=== PATIENT | female | born 2005 | race Caucasian/White ===

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

== ENCOUNTER 2024-08-13 08:48 | Emergency (ER) | payer MEDICAID, SELFPAY ==
[2024-08-13] VITALS (8 sets, daily range): BP systolic 125–167; BP diastolic 59–104; PULSE 68–107; RESP 16–18; TEMP 36.6; O2SAT 98–100; BMI 39.4
[2024-08-13 08:59] LABS: Microscopic, Urine URINE MICROSCOPIC (MICROSCOPIC)
[2024-08-13 09:04] LABS: Appearance,Urine CLOUDY (Clear); Bilirubin,Urine Negative (Negative); Blood, Urine Negative (Negative); Color,Urine YELLOW (Yellow); Glucose,Urine (UA) Negative (Negative); Ketones,Urine Negative (Negative); Leukocyte Esterase,Urine 2+ (Negative); Nitrate,Urine Negative (Negative); Protein,Urine Negative (Negative); Urobilinogen,Urine 0.2 EU/dl (0.2)
--- NOTE | 2024-08-13 09:12 | HMH.EDGENADL ---
Discharge Plan Disposition Patient Disposition: Home, Self-Care Condition: Good Prescriptions Prescriptions: New cefdinir 300 mg capsule 300 mg PO BID 7 Days Qty: 14 0RF ketorolac 10 mg tablet 10 mg PO Q8H PRN (Reason: pain) 3 Days Qty: 9 0RF No Action medroxyprogesterone 150 mg/mL suspension See Rx Instructions .ROUTE .COMPLEX Patient Comments: INJECT ONE (1) ML EVERY THREE (3) MONTHS BY INTRAMUSCULAR ROUTE. Rx Instructions: . methylprednisolone acetate [Depo-Medrol] 40 mg/mL Suspension See Rx Instructions .ROUTE .COMPLEX Rx Instructions: (unsure) mg intramuscularly q12 weeks for BC. Patient unsure of dosage number Referrals Follow up/Referrals: Provider,Referral, MD [Primary Care Provider, Medical] - See instructions Activity Restrictions/Add. Instructions Additional Instructions/Restrictions: You were evaluated in the emergency department today. At this time, CT scans are reassuring and we do not see any postoperative complications such as retained stone or obvious biliary ductal dilatation. Your labs are reassuring as well. You may have a urinary tract infection, so we are prescribing you an antibiotic to treat this. I am also prescribing you Toradol to take as needed for pain. Please follow-up closely with your primary care provider for reassessment. Keep your follow-up with surgery tomorrow as well for further assessment. Return to the emergency department for new or worsening symptoms. Clinical Impressions Clinical Impression: Acute right flank pain, UTI (urinary tract infection) Stand Alone Forms Stand Alone Forms: Work/School Release Instructions Patient Instructions: DI for Urinary Tract Infection (UTI), DI for Thoracic Back Pain Print Language Print Language: Hungarian Discharge ED Provider: Griselda Purdy General Adult HPI General Chief complaint: Back Pain/Injury Stated complaint: back pain no accident Time Seen by Provider: 08/13/24 09:07 Mode of Arrival: Ambulatory Source of Information: Patient Description of Symptoms (Recalled from ER Triage Doc. by RN): Patient complaining of pain in right upper back that she states is similar to pain she was having before she had her gallbladder removed a year ago- states she has an appt tomorrow with surgeon but she could not take the pain anymore, pain has gotten progressively worse since last weekend but she has had continued pain since surgery. Has had nausea, but denies vomiting or diarrhea, has not taken anything for the pain. History of Present Illness HPI narrative: This patient is a 18-year-old female with a history of cholecystectomy 05/25/2023 for acute calculus cholecystitis presenting to the emergency department for evaluation of concern for right upper back/right upper abdominal pain and nausea. The spells have been intermittent ever since before she had her gallbladder out, and she states is the same as the gallbladder pain that prompted her ED evaluation necessitating cholecystectomy in the past. She states that it hits her randomly and is so severe that she becomes very nauseated. She also notes it takes her breath away. She notes that it was really bad over the weekend, prompting her to schedule a surgical appointment for tomorrow, but she states that the pain is back again today so she is not able to wait until tomorrow. No fevers, vomiting, changes in bowel movements, urinary symptoms, cough, congestion, or other concerns. Related Data Home Medications ?Medication ?Instructions ?Recorded ?Confirmed methylprednisolone acetate 40 See Rx Instructions .Route .COMPLEX 05/23/23 05/31/23 mg/mL suspension for injection (Depo-Medrol) medroxyprogesterone 150 mg/mL See Rx Instructions .Route .COMPLEX 05/24/23 05/31/23 intramuscular suspension Previous Rx's ?Medication ?Instructions ?Recorded cefdinir 300 mg capsule 300 mg PO BID 7 days #14 caps 08/13/24 ketorolac 10 mg tablet 10 mg PO Q8H PRN pain 3 days #9 08/13/24 tabs Allergies Allergy/AdvReac Type Severity Reaction Status Date / Time No Known Allergies Allergy Verified 05/31/23 14:02 [facility] Disclaimer: The information contained in this section may have been updated after the patient was seen, as this information can be updated by other users. Medical History History of COVID-19 Migraine History of gastroesophageal reflux (GERD) Allergies Hypertension History of anemia Surgical History History of laparoscopic cholecystectomy History of tonsillectomy and adenoidectomy Family History Other Cancer Diabetes Heart disease Social History Smoking Status: Never smoker alcohol intake: never substance use type: denies use current occupational status: unemployed Travel in the last 8 weeks?: None Have you lived/traveled outside US in past 30 days?: No Contact w/someone who lives/traveled outside US past 30 days?: No Exposure to someone with infectious disease in past 14 days?: No Do you have a fever (greater than 100.4 F or 38 C)?: No Have you tested positive for COVID-19?: No Exposed to someone with COVID-19 in past 14 days?: No Do you have a sore throat?: No Do you have a cough?: No Do you have any weakness?: No Do you have any diarrhea?: No Are you experiencing any unusual bleeding?: No Do you have any muscle aches/pain?: Yes Do you have any abdominal pain?: No Are you experiencing loss of taste or smell?: No ROS Obtained: Yes All systems reviewed & no additional complaints except as documented Physical Exam General General appearance: alert and in no apparent distress Head Head exam: atraumatic and normocephalic Eye Eye exam: Present normal appearance, PERRL and EOMI ENT ENT exam: Present normal exam, normal oropharynx, mucous membranes moist and normal external ear exam Neck Neck exam: Present normal inspection, full ROM and trachea midline; Absent tenderness Chest Chest inspection: Present normal inspection and symmetric chest wall rise; Absent tenderness Respiratory Respiratory exam: Present normal lung sounds bilaterally; Absent respiratory distress, wheezes, stridor or accessory muscle use Cardiovascular Cardiovascular exam: Present normal rhythm and tachycardia Abdominal Exam Abdominal exam: Present soft; Absent distention, tenderness or guarding Extremities Exam Extremities exam: Present normal inspection, full ROM and normal capillary refill; Absent tenderness or edema Back Exam Back exam: Present normal inspection and full ROM; Absent tenderness Neurological Exam Neurological exam: Present alert, oriented X3, CN II-XII intact and normal gait; Absent motor sensory deficit Psychiatric Psychiatric exam: Present normal affect and normal mood Skin Skin exam: Present warm and dry Medical Decision Making Medical Records Medical records reviewed: Yes I reviewed the patient's medical records. Screening: Per USPSTF and CDC recommendations, given the prevalence of disease in our region, it is our hospital?s policy to screen for HIV and viral Hepatitis for all patients aged 18 and over and those with ongoing risk factors. Elvis Inquiry Pt receiving controlled substance: No Vital Signs: 08/13/24 08:57 08/13/24 09:08 08/13/24 09:31 Temperature 98 F Temperature Source Oral Pulse Rate 88 91 H Pulse Rate [Right Radial] 107 H Respiratory Rate 16 Blood Pressure 126/59 L 128/66 Blood Pressure [Right Arm] 167/104 H Blood Pressure Mean Blood Pressure Mean [Right Arm] 125 Blood Pressure Source Blood Pressure Source [Right Arm] Automatic Cuff Blood Pressure Position Blood Pressure Position [Right Arm] Sitting 02 Sat by Pulse Oximetry 98 100 98 Oxygen Delivery Method Room Air Room Air Room Air 08/13/24 10:01 08/13/24 10:31 08/13/24 11:31 Temperature Temperature Source Pulse Rate 88 83 85 Pulse Rate [Right Radial] Respiratory Rate 18 18 18 Blood Pressure 127/61 125/65 129/72 Blood Pressure [Right Arm] Blood Pressure Mean 84 78 91 Blood Pressure Mean [Right Arm] Blood Pressure Source Blood Pressure Source [Right Arm] Blood Pressure Position Blood Pressure Position [Right Arm] 02 Sat by Pulse Oximetry 98 100 100 Oxygen Delivery Method 08/13/24 12:01 08/13/24 12:43 Temperature 97.8 F Temperature Source Oral Pulse Rate 74 68 Pulse Rate [Right Radial] Respiratory Rate 18 16 Blood Pressure 137/68 129/75 Blood Pressure [Right Arm] Blood Pressure Mean 91 Blood Pressure Mean [Right Arm] Blood Pressure Source Automatic Cuff Blood Pressure Source [Right Arm] Blood Pressure Position Sitting Blood Pressure Position [Right Arm] 02 Sat by Pulse Oximetry 100 Oxygen Delivery Method Room Air Lab Data Lab results reviewed: Yes I reviewed the patient's lab results. Lab Results 08/13/24 08:55: Urine Color Yellow, Urine Appearance Cloudy, Urine pH 6.0, Ur Specific [place] 1.020, Urine Protein Negative, Urine Glucose (UA) Negative, Urine Ketones Negative, Urine Blood Negative, Urine Nitrate Negative, Urine Bilirubin Negative, Urine Urobilinogen 0.2, Ur Leukocyte Esterase 2+ A, Urine RBC None, Urine WBC Occasional, Ur Squamous Epith Cells 5-10, Urine Bacteria Trace, Urine HCG, Qual Negative 08/13/24 09:07: WBC 7.6, RBC 5.18, Hgb 13.4, Hct 42.0, MCV 81.1, MCH 25.9 L, MCHC 31.9, RDW 14.7, Plt Count 424, MPV 10.4, Neut % (Auto) 58.5, Lymph % (Auto) 32.6, [place] % (Auto) 6.9, Eos % (Auto) 1.2, Baso % (Auto) 0.5, Neut # (Auto) 4.5, Lymph # (Auto) 2.5, [place] # (Auto) 0.5, Eos # (Auto) 0.1, Baso # (Auto) 0.0, D-Dimer 0.51 H, Sodium 140, Potassium 4.4, Chloride 105, Carbon Dioxide 24, Anion Gap 15.4 H, BUN 13, Creatinine 0.60, Estimated Creat Clear 248, Estimated GFR 129, Est GFR ( Amer) 156, Glucose 94, Calcium 9.7, Total Bilirubin 0.5, AST 29, ALT 29, Alkaline Phosphatase 64, Total Protein 9.2 H, Albumin 5.0, Globulin 4.2 H, Albumin/Globulin Ratio 1.2, Lipase 75 08/13/24 09:07 08/13/24 09:07 Orders (Tests/Meds): ED MEDICATIONS Discontinued Medications Generic Name Dose Route Start Last Admin Trade Name Freq PRN Reason Stop Dose Admin Acetaminophen 1,000 mg 08/13/24 09:12 08/13/24 09:45 Acetaminophen 500mg Tab PO 08/13/24 09:13 1,000 mg ONCE ONE Administration Cefdinir 300 mg 08/13/24 12:16 08/13/24 12:22 Cefdinir 300mg Capsule PO 08/13/24 12:17 300 mg ONCE ONE Administration Lactated Ringer's 1,000 mls @ 999 mls/hr 08/13/24 09:12 08/13/24 09:46 Lactated Ringer's 1000 Ml Bag IV 08/13/24 10:12 999 mls/hr .Q1H1M ONE Administration Iopamidol 70 ml 08/13/24 11:04 08/13/24 11:05 Iopamidol-370 (76%);100ml Bottle IV 08/13/24 11:05 70 ml ONCE ONE Administration Ketorolac Tromethamine 15 mg 08/13/24 09:12 08/13/24 09:45 Ketorolac 30mg/Ml Vial IV 08/13/24 09:13 15 mg ONCE ONE Administration Lidocaine 1 each 08/13/24 12:16 08/13/24 12:22 Lidocaine 5% Transdermal Patch TD 08/13/24 12:17 1 each ONCE ONE Administration Methocarbamol 500 mg 08/13/24 12:16 08/13/24 12:22 Methocarbamol 500mg Tablet PO 08/13/24 12:17 500 mg ONCE ONE Administration Ondansetron HCl 4 mg 08/13/24 09:12 08/13/24 09:45 Ondansetron 4mg/2ml Vial IV 08/13/24 09:13 4 mg ONCE ONE Administration Sodium Chloride 50 ml 08/13/24 11:04 08/13/24 11:05 0.9 % Sodium Chloride 50 Ml Vial IV 08/13/24 11:05 50 ml ONCE ONE Administration Sodium Chloride 10 ml 08/13/24 11:04 08/13/24 11:05 Sodium Chloride 0.9% 10ml Syr (Rad Only) IV 08/13/24 11:05 10 ml ONCE ONE Administration ORDERS Category Date Time Status CT abdomen pelvis w con Stat Cat Scan 08/13/24 10:[address] angio chest PE protocol Stat Cat Scan 08/13/24 10:47 Completed Complete Blood Count Auto Diff Stat Lab 08/13/24 09:07 Completed Comprehensive Metabolic Panel Stat Lab 08/13/24 09:07 Completed D-Dimer Stat Lab 08/13/24 09:07 Completed Lipase Stat Lab 08/13/24 09:07 Completed UA [Urinalysis and Microscopic] Stat Lab 08/13/24 08:55 Completed Urine , HCG Qual. Stat Lab 08/13/24 08:55 Completed Urine Culture Stat Micro 08/13/24 08:55 Received Medical Decision Narrative: In summary, this patient is a 18-year-old female presenting to the Emergency Department for evaluation of right upper back pain radiating around to her abdomen as well as associated shortness of breath and nausea. Differential diagnoses considered include but are not limited to retained biliary ductal stone, pancreatitis, pleurisy, pneumonia, PE, musculoskeletal pain. Ruling out the most morbid conditions drove assessment. I reviewed patient's past medical records and noted prior cholecystectomy 05/25/2023. On exam, the patient is sitting upright no acute distress. She is mildly tachycardic and hypertensive, but otherwise vital signs are reassuring and she is afebrile and nontoxic. She does not have any significant abdominal tenderness or CVA tenderness. Cannot use PERC criteria to exclude PE given hormonal control and tachycardia. Workup included CBC, CMP, lipase, urinalysis, test, D-dimer. She was given a bolus of IV fluids as well as IV Toradol, oral Tylenol, IV Zofran for symptomatic improvement. Labs demonstrated reassuring CBC with no significant leukocytosis or anemia. D-dimer is just over the limit of normal at 0.51. Chemistry is reassuring with no transaminitis, normal bilirubin, normal lipase, normal kidney function. Urinalysis demonstrates 2+ leukocyte esterase with trace bacteria, though she does not mention overt urinary symptoms. She is having flank pain. I elected to obtain CTA PE protocol and CT abdomen pelvis with IV contrast. I independently interpreted CT scan prior to the radiologist read and noted no obstructive ureterolithiasis, no PE, no pneumonia, no pneumothorax, no intra-abdominal fluid collection or bowel obstruction. Please see their read for final interpretation. On reassessed, the patient is feeling much better. Unclear to me if this could be related to musculoskeletal pain vs pyelonephritis vs other cause of pain. Based on reassuring workup and exam, I do not feel that there is any reason that we have to admit her to the hospital for further evaluation today. I feel she is appropriate for discharge home with cefdinir to treat urine and close follow-up with primary care and surgery as planned. She was given strict return precautions and was discharged with prescription for Toradol as well to treat pain Critical Care Critical Care Time Critical Care Time: No
[2024-08-13 09:18] LABS: WBC,Urine Occasional #/hpf (0-3)
[2024-08-13 09:19] LABS: Bacteria,Urine Trace /lpf
[2024-08-13 09:24] LABS: Basophils % 0.5 % (0.1-2.0); Eosinophils # 0.1 Kmm3 (0.0-0.4); Eosinophils % 1.2 % (0.1-12.0); Hemoglobin 13.4 g/dL (12.2-16.2); Immature Granulocytes # 0.02 10^3uL; Immature Granulocytes % 0.3 %; Lymphocytes # 2.5 K/mm3 (0.7-4.5); Lymphocytes % 32.6 % (10-50); Mean Corpuscular HGB Conc 31.9 g/dL (31.8-35.4); Mean Corpuscular Hemoglobin 25.9 pg (27.0-31.2); Mean Corpuscular Volume 81.1 fl (81-99); Mean Platelet Volume 10.4 fl (7.4-10.4); Monocytes # 0.5 K/mm3 (0.1-1.0); Monocytes % 6.9 % (1.7-9.3); Neutrophils # 4.5 K/mm3 (1.8-7.8); Neutrophils % 58.5 % (37.0-80.0); Nucleated Red Blood Cells # 0 10^3/uL; Nucleated Red Blood Cells % 0 %; Platelet Count 424 K/mm3 (142-424); Red Blood Count 5.18 M/mm3 (4.20-5.40); Red Cell Distribution Width 14.7 % (11.5-17.5); Red Cell Distribution Width-SD 43.2 fL; White Blood Count 7.6 K/mm3 (4.5-13.0)
[2024-08-13] MEDS: ONDANSETRON 4MG/2ML VIAL 4 MG IV (09:45)
[2024-08-13] MEDS: ACETAMINOPHEN 500MG TAB 1000 MG PO (09:45)
[2024-08-13] MEDS: KETOROLAC 30MG/ML VIAL 15 MG IV (09:45)
[2024-08-13] MEDS: LACTATED RINGERS 1000ML 1,000 ML 999 ML IV (09:46)
[2024-08-13 09:52] LABS: Alanine Aminotransferase 29 U/L (12-78); Albumin/Globulin Ratio 1.2 (1.1-1.8); Alkaline Phosphatase 64 U/L (38-126); Anion Gap 15.4 mEq/L (5-15); Aspartate Amino Transferase 29 U/L (14-36); Bilirubin,Total 0.5 mg/dl (0.2-1.3); Blood Urea Nitrogen 13 mg/dl (7-17); Calcium 9.7 mg/dl (8.4-10.2); Carbon Dioxide 24 mmol/L (22.0-30.0); Chloride 105 mmol/L (98-107); Creatinine Clearance Estimated 248 mL/min (50-200); Estimated Glomerular Filt Rate 129 ml/min (>60); GFR (African American) 156 ML/MIN (>60); Globulin 4.2 g/dL (1.3-3.2); Glucose 94 mg/dl (74-100); Potassium 4.4 mmoL/L (3.5-5.1); Sodium 140 mmol/L (136-145); Total Protein,Serum 9.2 g/dl (6.3-8.2)
[2024-08-13 09:57] LABS: D-Dimer 0.51 ug/mL (0.0-0.5)
[2024-08-13 09:58] LABS: Lipase 75 U/L (23-300)
--- NOTE | 2024-08-13 10:47 | CT_ITS ---
FINAL REPORT TECHNIQUE: Thin section axial images are obtained through the abdomen and pelvis after intravenous contrast. Reconstruction images were obtained from the axial data. Exam was performed using dose reduction techniques. CLINICAL HISTORY: R flank/R lower chest pain, prior angela COMPARISON: 05/23/2023 FINDINGS: LIVER: Homogeneous. No focal lesion. GALLBLADDER/BILIARY SYSTEM: Gallbladder is absent. No biliary dilatation. SPLEEN: Unremarkable. PANCREAS: Unremarkable. ADRENALS: Unremarkable. KIDNEYS/URETERS/BLADDER: No hydronephrosis, renal mass, or renal stone. Unremarkable urinary bladder. GI TRACT: No small bowel obstruction or dilatation. Normal appendix. No acute colon abnormality. PELVIC ORGANS: Unremarkable for age. LYMPH NODES/RETROPERITONEUM/MESENTERY: No lymphadenopathy. No abdominal aortic aneurysm. ABDOMINAL WALL: The abdominal wall is intact. FREE FLUID: No ascites. BONES: No acute osseous abnormality. IMPRESSION: Unremarkable exam. Reviewed, Interpreted and Dictated by Kristy Hickey MD Transcribed by Krystin Kent Authenticated and [facility]
--- NOTE | 2024-08-13 10:47 | CT_ITS ---
FINAL REPORT TECHNIQUE: Postcontrast axial images of the chest were performed in a CTA protocol. This study was performed with techniques to keep radiation doses as low as reasonably achievable, (ALARA). Individualized dose reduction technique using automated exposure control or adjustment of mA and/or kV according to the patient's size were employed. CLINICAL HISTORY: R flank/R lower chest pain, prior angela FINDINGS: Residual thymus is seen in the anterior mediastinum. The heart is borderline in size. There are mildly prominent bilateral axillary lymph nodes. There is no mediastinal or hilar lymphadenopathy. No pleural or pericardial effusion is identified. The thoracic aorta is normal in caliber with no focal aneurysm or dissection identified. There is no filling defect to suggest pulmonary embolism. There is a 6 mm left lower lobe pulmonary nodule seen on image 50 of series 5, likely of no significance in a patient of this age. Lungs are otherwise clear. No acute osseous abnormality is seen. IMPRESSION: No PE or dissection. Reviewed, Interpreted and Dictated by Kristy Hickey MD Transcribed by Krystin Kent Authenticated and [facility]
[2024-08-13 10:51] LABS: Urine Pregnancy, HCG Qual. Negative (Negative)
[2024-08-13] MEDS: 0.9 % SODIUM CHLORIDE 50 ML VIAL IV (11:05)
[2024-08-13] MEDS: SODIUM CHLORIDE 0.9% 10ML SYR (RAD ONLY) 10 ML IV (11:05)
[2024-08-13] MEDS: IOPAMIDOL-370 (76%);100ML BOTTLE 70 ML IV (11:05)
[2024-08-13] MEDS: LIDOCAINE 5% TRANSDERMAL PATCH 1 EACH TD (12:22)
[2024-08-13] MEDS: CEFDINIR 300MG CAPSULE 300 MG PO (12:22)
[2024-08-13] MEDS: METHOCARBAMOL 500MG TABLET 500 MG PO (12:22)
== END 2024-08-13 12:46 | disposition home or self-care (01) ==
PROVIDERS: Emergency Provider Emergency Medicine
DX: R10.31 Right lower quadrant pain (principal); N39.0 Urinary tract infection, site not specified
CPT/HCPCS: 71275; 74177; 80053; 81001; 81025; 83690; 85025; 85378; 87086; 96361; 96374; 96375; 99285; J1885; J2405; J7120; Q9967

== ENCOUNTER 2024-09-16 12:59 | Outpatient (POV) | payer MEDICAID, SELFPAY ==
--- NOTE | 2024-09-16 13:11 | EXP.PAIN.OV ---
HPI Data of Consult Patient: new to practice Consult date: 09/16/24 Requesting Physician: Griselda Walsh APRN Primary Care Provider: LAQUITA Bryan Reason for consult: Mid back pain, rib pain History of present illness: Ms. Goff is a 18 year old female who presents today as a new patient. She is a referral from Dr. Murray's office. Today she rates her pain a 10 out of 10. Patient states that over the last year since having her gallbladder removed she has had mid back pain that radiates out into her ribs bilaterally. Patient states that it is not always constant but does typically happen at least every 3 days. Patient states that the pain is very intense and debilitating when it does happen. She states that it can be very aggravating to any type of pressure sensation. She finds that clothing such as a hoodie or high wasted jeans are very aggravating. She is typically states that if she changes close that it does ease up. Patient states it does get so bad that she feels like she just cannot breeze. Patient does state anymore it does seem to start on the left side and radiate to her mid back and across the right ribs. She has tried ceat-nry-sgrpuun medication along with heat and some topicals like lidocaine cream that did seem to help. Patient denies any mid back imaging or physical therapy. She is not on any scheduled medications. Her Elvis has been reviewed and is appropriate. Pain at rest (0-10 scale): 10 Has patient had previous pain injection?: No Conservative treatment options previously tried: Home exercise plan (Longer than 12 weeks) cc:: CC: Griselda Walsh APRN [facility] Disclaimer: The information contained in this section may have been updated after the patient was seen, as this information can be updated by other users. Medical History History of COVID-19 Migraine History of gastroesophageal reflux (GERD) Allergies Hypertension History of anemia Surgical History History of laparoscopic cholecystectomy History of tonsillectomy and adenoidectomy Family History Other Cancer Diabetes Heart disease Social History (Updated 09/16/24 @ 13:47 by Jess Lorenzo RN) Smoking Status: Never smoker alcohol intake: never substance use type: denies use current occupational status: employed Travel in the last 8 weeks?: None Contact w/someone who lives/traveled outside [place] past 30 days?: No Exposure to someone with infectious disease in past 14 days?: No Do you have a fever (greater than 100.4 F or 38 C)?: No Have you tested positive for COVID-19?: No Exposed to someone with COVID-19 in past 14 days?: No Do you have a sore throat?: No Do you have a cough?: No Do you have any weakness?: No Are you experiencing any nausea/vomitting?: No Do you have any diarrhea?: No Are you experiencing any unusual bleeding?: No Do you have any muscle aches/pain?: No Do you have any abdominal pain?: No Are you experiencing loss of taste or smell?: No Review of Systems Review of Systems Review of systems:: pertinent systems reviewed and negative unless documented below Review of systems (narrative): Review of Systems: General: No recent weight changes, no fever, no sleep disturbances Respiratory: No cough, no shortness of air, no recurring pulmonary infections Cardiovascular/peripheral vascular: No chest pain, no palpitations, no edema, no shortness of breath Gastrointestinal: No new onset incontinence, normal bowel movements reported Genitourinary: No new onset incontinence Musculoskeletal: Mid back pain Psychiatric: [Normal mood/affect] Neurological: [Denies weakness in extremities], [denies balance issues] Meds Home Medications and Allergies Home Medications ?Medication ?Instructions ?Recorded ?Confirmed ?Type diclofenac sodium 75 mg 75 mg PO BID #28 tabs 09/16/24 Rx tablet,delayed release New Prescriptions to Start Prescriptions: diclofenac sodium Griselda Walsh Allergies Allergy/AdvReac Type Severity Reaction Status Date / Time No Known Allergies Allergy Verified 08/14/24 13:04 Objective Narrative: Physical Exam: General: Alert and oriented x3, no acute distress, pleasant and cooperative Lungs: Respirations even and unlabored, symmetrical chest expansion Eyes: PERRL Musculoskeletal: Flexion and extension of thoracic [spine] somewhat guarded secondary to pain, point tenderness noted bilaterally around the approximate T7-T8 and tenderness over ribs Neurological: Speech clear, no gross sensory deficit Assessment and Plan *Assessment and plan (1) Mid back pain: Status: Acute Category: Medical Code(s): M54.9 - Dorsalgia, unspecified (2) Rib pain: Status: Acute Category: Medical Code(s): R07.81 - Pleurodynia (3) Myofascial pain: Status: Acute Category: Medical Code(s): M79.18 - Myalgia, other site Plan I did discuss with the patient due to having mid back pain that really started after her gallbladder surgery that I would like to order some imaging including a x-ray with a MRI without contrast to follow. Patient will be also ordered physical therapy and compounded cream. Patient will return to clinic in 2 weeks for reevaluation of symptoms and plan of care. I will also send in a 2-week prescription of diclofenac 75 mg twice daily. Patient denied any heart or kidney issues. Patient has been instructed to contact the clinic with any concerns before the next appointment. Dr. Arevalo has reviewed this note and agrees with this plan of care. This note was dictated using voice recognition software and make contain errors or omissions. All injections are used with Lidocaine, Bupivacaine and dexamethasone. Occasionally urine drug screen is needed to verify patient's compliance with our office pain contract. This is ordered based off specific treatments related to chronic pain with the potential to abuse certain medications.
--- NOTE | 2024-09-16 13:40 | XR_ITS ---
FINAL REPORT CLINICAL HISTORY: Mid back pain STATES BACK AND RIB PAIN X1 YEAR COMPARISON: None FINDINGS: 3 views of the thoracic spine were obtained. There is no acute fracture. There is no malalignment. The vertebrae are normal in height. The disc spaces are preserved. IMPRESSION: No acute process. Reviewed, Interpreted and Dictated by Etienne Sung MD Transcribed by Billie Fermin Authenticated and [facility]
[2024-09-16 13:44] VITALS: BP 122/84; PULSE 94; RESP 18; O2SAT 100; BMI 39.4
== END 2024-09-16 23:59 | disposition home or self-care (01) ==
PROVIDERS: PCP Physician Assistant Medical; Visit Provider Nurse Practitioner Family
DX: M54.9 Dorsalgia, unspecified (principal); R07.81 Pleurodynia; M79.18 Myalgia, other site; Z79.1 Long term (current) use of non-steroidal anti-inflammatories (NSAID)
CPT/HCPCS: 72072; 99202; G0463